=== PATIENT | male | born 1940 | race African-American/Black ===

== ENCOUNTER 2018-10-25 19:37 | Observation (INO) ==
[2018-10-25 20:03] LABS: Basophils # 0.1 10*3/uL (0.0-0.2); Eosinophils # 0.1 10*3/uL (0.0-0.87); Eosinophils % 1.4 % (0.00-10.9); Hematocrit 36.9 VOL% (42.0-52.0); Hemoglobin 12.2 GM/DL (14.0-18.0); Immature Granulocytes % 0.5 %; Immature Granulocytes Absolute 0.05 #; Lymphocytes # 1.3 10*3/uL (1.4-4.0); Lymphocytes % 13.3 % (21.2-54.2); Mean Corpuscular HGB Conc 33.1 GM/DL (32-36); Mean Corpuscular Hemoglobin 31 PG (27-34); Mean Corpuscular Volume 94.9 FL (87-102); Monocytes # 0.6 10*3/uL (0.11-0.8); Monocytes % 6.5 % (1.7-12.7); Neutrophils # 7.3 10*3/uL (1.4-7.4); Neutrophils % 77.3 % (38.7-73.9); Platelet Count 237 T/CUMM (130-400); Red Blood Count 3.89 MC/CUMM (3.8-5.5); Red Cell Distribution Width 15.7 % (9.3-17.3); White Blood Count 9.5 T/CUMM (4-12)
[2018-10-25 20:31] LABS: Albumin 3.4 G/DL (3.4-5.0); Bilirubin,Total 0.5 MG/DL (0.2-1.0); Calcium 8.7 MG/DL (8.5-10.1); Osmolality,Calculated 276.7 MOS/KG (273-304); Potassium 3.9 MMOL/L (3.5-5.1); Total Protein 6.8 G/DL (6.4-8.3)
[2018-10-25] MEDS ORDERED: NITROGLYCERIN SL 0.4 MG TABLET SL STA (21:13)
[2018-10-25] MEDS ORDERED: NITROGLYCERIN 2% OINT 1 INCH/GM PACK TOP STA (21:13)
[2018-10-25] MEDS ORDERED: ONDANSETRON 4 MG/2 ML VIAL IV PRN (22:42)
[2018-10-25] MEDS ORDERED: MORPHINE 4 MG/1 ML VIAL IV PRN (22:42)
[2018-10-25] MEDS ORDERED: MAGNESIUM SULF RIDER 4 GM in PREMIX 1 EACH IV PRN (22:47)
[2018-10-25] MEDS ORDERED: MAGNESIUM SULF RIDER 2 GM in PREMIX 1 EACH IV PRN (22:47)
[2018-10-25] MEDS ORDERED: hydrOXYzine HCL 25 MG TABLET PO PRN (22:50)
[2018-10-25] MEDS ORDERED: NITROGLYCERIN SL 0.4 MG TABLET SL PRN (22:50)
[2018-10-25] MEDS ORDERED: ENOXAPARIN 40 MG/0.4 ML SYRINGE SUBCUT SCH (23:00)
[2018-10-26 02:29] LABS: Basophils # 0.1 10*3/uL (0.0-0.2); Basophils % 0.8 % (0.0-0.8); Eosinophils # 0.2 10*3/uL (0.0-0.87); Eosinophils % 1.7 % (0.00-10.9); Hematocrit 35.4 VOL% (42.0-52.0); Hemoglobin 11.8 GM/DL (14.0-18.0); Immature Granulocytes % 0.5 %; Immature Granulocytes Absolute 0.05 #; Lymphocytes # 1.5 10*3/uL (1.4-4.0); Lymphocytes % 15.6 % (21.2-54.2); Mean Corpuscular HGB Conc 33.3 GM/DL (32-36); Mean Corpuscular Hemoglobin 31 PG (27-34); Mean Corpuscular Volume 93.4 FL (87-102); Mean Platelet Volume 10.5 FL (9.6-12.0); Monocytes # 0.6 10*3/uL (0.11-0.8); Monocytes % 5.9 % (1.7-12.7); Neutrophils # 7.2 10*3/uL (1.4-7.4); Neutrophils % 75.5 % (38.7-73.9); Platelet Count 235 T/CUMM (130-400); Red Blood Count 3.79 MC/CUMM (3.8-5.5); Red Cell Distribution Width 15.8 % (9.3-17.3); White Blood Count 9.5 T/CUMM (4-12)
[2018-10-26 02:38] LABS: Calcium 8.5 MG/DL (8.5-10.1); Osmolality,Calculated 280.5 MOS/KG (273-304); Potassium 3.6 MMOL/L (3.5-5.1)
[2018-10-26] MEDS ORDERED: NICOTINE 14 MG/24 HR PATCH TRANSDERM SCH (09:00)
[2018-10-26] MEDS ORDERED: CLOPIDOGREL 75 MG TABLET PO SCH (09:00)
[2018-10-26] MEDS ORDERED: LISINOPRIL/HCTZ 20-25 MG TABLET PO SCH ×2 (09:00)
[2018-10-26] MEDS ORDERED: ASPIRIN EC 81 MG TABLET PO SCH (09:00)
[2018-10-26] MEDS ORDERED: FOLIC ACID 1 MG TABLET PO SCH (09:00)
[2018-10-26 11:38] VITALS: BP 168/74
[2018-10-26] MEDS ORDERED: NITROGLYCERIN 0.2 MG/HR PATCH TRANSDERM SCH (13:00)
[2018-10-26] MEDS ORDERED: ATORVASTATIN 20 MG TABLET PO SCH (21:00)
[2018-10-31] MEDS ORDERED: METHOTREXATE 2.5 MG TABLET PO SCH (09:00)
== END 2018-10-26 14:35 | disposition home or self-care (01) ==
LOC: N.EDINP 19:37 → N.ED 19:37 → N.TELEN 10-26 00:17
PROVIDERS: ADMIT Hospitalist; ATTEND Hospitalist

== ENCOUNTER 2021-04-16 18:19 | Inpatient (IN) ==
[2021-04-16] MEDS ORDERED: DEXTROSE 50% 25 GM/50 ML VIAL IV PRN (19:52)
[2021-04-16] MEDS ORDERED: PROMETHAZINE 25 MG/1 ML VIAL IM PRN (19:52)
[2021-04-16] MEDS ORDERED: GLUCAGON 1 MG VIAL IM PRN (19:52)
[2021-04-16] MEDS ORDERED: hydrALAZINE 20 MG/1 ML VIAL IV PRN (20:34)
[2021-04-16] MEDS: PIPERACILLIN/TAZOBACTAM 3,375 MG in SODIUM CHLORIDE 0.9% 100 ML IV SCH (21:05)
[2021-04-16] MEDS: ONDANSETRON 4 MG/2 ML VIAL IV PRN (21:05)
[2021-04-16] MEDS: MORPHINE 2 MG/1 ML SYRINGE IV PRN (21:05)
[2021-04-16] MEDS: ATORVASTATIN 40 MG TABLET PO SCH (22:39)
[2021-04-16] MEDS: ROSUVASTATIN 10 MG TABLET PO SCH (22:40)
[2021-04-16] MEDS ORDERED: PNEUMOCOCCAL VACCINE (13 VALENT) 0.5 ML SYRINGE IM ONE (22:48)
[2021-04-16] MEDS: SODIUM CHLORIDE 0.9% 1,000 ML IV SCH (22:58)
[2021-04-17] MEDS: DEXT 5% NACL 0.45% KCL 40 MEQ 40 MEQ/1,000 ML BAG IV SCH ×4 (00:06→21:06)
[2021-04-17] MEDS: ENOXAPARIN 40 MG/0.4 ML SYRINGE SUBCUT SCH ×2 (00:06→21:07)
[2021-04-17] MEDS: ONDANSETRON 4 MG/2 ML VIAL IV PRN (01:03)
[2021-04-17] MEDS: MORPHINE 2 MG/1 ML SYRINGE IV PRN ×2 (01:06→08:53)
[2021-04-17] MEDS: PIPERACILLIN/TAZOBACTAM 3,375 MG in SODIUM CHLORIDE 0.9% 100 ML IV SCH ×3 (04:04→21:07)
[2021-04-17 05:39] LABS: Basophils # 0.1 10*3/uL (0.0-0.2); Basophils % 0.5 % (0.0-0.8); Eosinophils % 0.3 % (0.00-10.9); Hematocrit 41.3 VOL% (42.0-52.0); Hemoglobin 13.4 GM/DL (14.0-18.0); Immature Granulocytes % 0.2 %; Immature Granulocytes Absolute 0.02 #; Lymphocytes # 1.1 10*3/uL (1.4-4.0); Lymphocytes % 9.8 % (21.2-54.2); Mean Corpuscular HGB Conc 32.4 GM/DL (32-36); Mean Corpuscular Volume 95.8 FL (87-102); Monocytes % 8.5 % (1.7-12.7); Neutrophils % 80.7 % (38.7-73.9); Platelet Count 204 T/CUMM (130-400); Red Blood Count 4.31 MC/CUMM (3.8-5.5); Red Cell Distribution Width 14.5 % (9.3-17.3); White Blood Count 11.1 T/CUMM (4-12)
[2021-04-17 06:26] LABS: Calcium 8.2 MG/DL (8.5-10.1); Osmolality,Calculated 273.7 MOS/KG (273-304); Thyroid Stimulating Hormone 1.81 uIU/ml (0.358-3.74)
[2021-04-17] MEDS: PANTOPRAZOLE 40 MG VIAL IV SCH (08:52)
[2021-04-17] MEDS ORDERED: CLOPIDOGREL 75 MG TABLET PO SCH (09:00)
[2021-04-17] MEDS ORDERED: NALOXONE 0.4 MG/ML VIAL IV PRN (11:00)
[2021-04-17] MEDS: ASPIRIN CHEW 81 MG TABLET PO SCH (13:00)
[2021-04-17] MEDS: ISOSORBIDE MONONITRATE 30 MG TABLET PO SCH (13:01)
[2021-04-17] MEDS: DAPSONE 100 MG TABLET PO SCH (13:01)
[2021-04-17] MEDS: SODIUM CHLORIDE 0.9% 1,000 ML IV SCH ×2 (13:01→20:30)
[2021-04-17] MEDS: DILTIAZEM CD 180 MG CAPSULE PO SCH (13:01)
[2021-04-17] MEDS: ATORVASTATIN 40 MG TABLET PO SCH (21:06)
[2021-04-17] MEDS: ROSUVASTATIN 10 MG TABLET PO SCH (21:06)
[2021-04-18] MEDS: DEXT 5% NACL 0.45% KCL 40 MEQ 40 MEQ/1,000 ML BAG IV SCH (05:12)
[2021-04-18] MEDS: PIPERACILLIN/TAZOBACTAM 3,375 MG in SODIUM CHLORIDE 0.9% 100 ML IV SCH (06:15)
[2021-04-18 06:18] LABS: Basophils # 0.1 10*3/uL (0.0-0.2); Basophils % 0.4 % (0.0-0.8); Eosinophils % 0.3 % (0.00-10.9); Hematocrit 41.9 VOL% (42.0-52.0); Hemoglobin 13.7 GM/DL (14.0-18.0); Immature Granulocytes % 0.3 %; Immature Granulocytes Absolute 0.04 #; Lymphocytes # 0.9 10*3/uL (1.4-4.0); Mean Corpuscular HGB Conc 32.7 GM/DL (32-36); Mean Corpuscular Volume 94.8 FL (87-102); Mean Platelet Volume 10.9 FL (9.6-12.0); Monocytes % 5.2 % (1.7-12.7); Neutrophils % 86.8 % (38.7-73.9); Platelet Count 184 T/CUMM (130-400); Red Blood Count 4.42 MC/CUMM (3.8-5.5); Red Cell Distribution Width 14.4 % (9.3-17.3); White Blood Count 13.1 T/CUMM (4-12)
[2021-04-18 06:43] LABS: Calcium 8.6 MG/DL (8.5-10.1); Osmolality,Calculated 262.4 MOS/KG (273-304); Potassium 3.1 MMOL/L (3.5-5.1)
[2021-04-18 06:54] LABS: Risk Ratio 1.85; VLDL Cholesterol 15.8 MG/DL
[2021-04-18] MEDS ORDERED: POTASSIUM CHLORIDE RIDER 10 MEQ/100 ML PREMIX IV PRN (07:20)
[2021-04-18] MEDS ORDERED: MAGNESIUM SULF RIDER 4 GM/100 ML PREMIX IV PRN (07:20)
[2021-04-18] MEDS ORDERED: MAGNESIUM SULF RIDER 2 GM/50 ML PREMIX IV PRN (07:20)
[2021-04-18] MEDS ORDERED: DEXT 5% NACL 0.9% KCL 40 MEQ 40 MEQ/1,000 ML BAG IV SCH (07:45)
[2021-04-18] MEDS: PANTOPRAZOLE 40 MG VIAL IV SCH (08:22)
[2021-04-18] MEDS ORDERED: POLYETHYLENE GLYCOL POWDER 17 GM PACK PO SCH (09:00)
[2021-04-18] MEDS ORDERED: VANCOMYCIN INJ 1,000 MG in SODIUM CHLORIDE 0.9% 250 ML IV SCH (09:30)
[2021-04-18] MEDS: DAPSONE 100 MG TABLET PO SCH (10:22)
[2021-04-18] MEDS: ISOSORBIDE MONONITRATE 30 MG TABLET PO SCH (10:22)
[2021-04-18] MEDS: ASPIRIN CHEW 81 MG TABLET PO SCH (10:22)
[2021-04-18] MEDS: DILTIAZEM CD 180 MG CAPSULE PO SCH (10:34)
[2021-04-18 10:59] VITALS: BP 167/77
[2021-04-18] MEDS ORDERED: VANCOMYCIN INJ 1,000 MG in SODIUM CHLORIDE 0.9% 250 ML IV ONE (11:00)
[2021-04-18] MEDS ORDERED: AZITHROMYCIN INJ 500 MG in SODIUM CHLORIDE 0.9% 250 ML IV SCH (12:00)
== END 2021-04-18 12:45 | disposition left against medical advice (07) | DRG 387 ==
LOC: EDBD → EDUNIT# → N.ED 18:19 → N.EDINP 19:52 → N.3E 21:54
PROVIDERS: ADMIT Internal Medicine; ATTEND Internal Medicine